=== PATIENT | female | born 2000 | race Caucasian/White ===

== ENCOUNTER 2023-12-06 08:43 | Inpatient (IN) | payer BC ==
[~2023-12-06] VITALS: Ht 170.2 cm; Wt 111.1 kg
[2023-12-06 08:46] VITALS: TEMP 97.6
[2023-12-06 09:14] LABS: BASOPHILS % 0.3 % (0.0-1.0); EOSINOPHILS # (AUTO) 0.1 (0.0-0.4); EOSINOPHILS % 0.6 % (0.0-6.0); HEMATOCRIT 41.7 % (34.2-44.1); HEMOGLOBIN 13.6 g/dL (12.0-16.0); LYMPHOCYTES # (AUTO) 1.2 (1.0-3.2); LYMPHOCYTES % 12.3 % (18.0-39.1); MEAN CORPUSCULAR HEMOGLOBIN 27.5 pg (28-32); MEAN CORPUSCULAR HGB CONC 32.6 g/dL (31-35); MEAN CORPUSCULAR VOLUME 84.4 fL (81-99); MONOCYTES # (AUTO) 0.5 (0.2-0.8); MONOCYTES % 4.8 % (4.4-11.3); NEUTROPHILS # (AUTO) 7.9 (2.1-6.9); NEUTROPHILS % 81.7 % (38.7-80.0); PLATELET COUNT 258 x10e3/uL (140-360); RED BLOOD COUNT 4.94 x10e6/uL (3.6-5.1); RED CELL DISTRIBUTION WIDTH 13.8 % (11.7-14.4); WHITE BLOOD COUNT 9.61 x10e3/uL (4.8-10.8)
[2023-12-06] MEDS: SODIUM CHLORIDE 0.9% 1000ML 1,000 ML IV STA (09:25)
[2023-12-06] MEDS: ONDANSETRON HCL INJ 2MG/ML 2ML 2 MG/ML VIAL IV STA (09:25)
[2023-12-06] MEDS: Morphine 4mg INJECTION 4 MG/ML INJ IV ONE (09:25)
[2023-12-06 09:37] LABS: ALBUMIN 4.4 g/dL (3.5-5.0); ALBUMIN/GLOBULIN RATIO 2.8 (0.8-2.0); ANION GAP 14.7 mmol/L (8-16); BILIRUBIN,TOTAL 3.1 mg/dL (0.2-1.2); CALCIUM 9.4 mg/dL (8.4-10.2); CREATININE, SERUM 0.83 mg/dL (0.57-1.11); POTASSIUM 3.7 mmol/L (3.5-5.1)
[2023-12-06] MEDS ORDERED: SODIUM CHLORIDE FLUSH 10 ML SYR INJ PRN (11:30)
[2023-12-06 12:52] VITALS: PULSE 71; RESP 16
[2023-12-06 13:30] VITALS: BP 123/81; PULSE 82; RESP 20; TEMP 98.6; O2SAT 100
[2023-12-06] MEDS: SODIUM CHLORIDE 0.9% 1000ML 1,000 ML IV SCH (14:11)
[2023-12-06] MEDS: ONDANSETRON HCL INJ 2MG/ML 2ML 2 MG/ML VIAL IV PRN (14:11)
[2023-12-06] MEDS: Morphine 4mg INJECTION 4 MG/ML INJ IV PRN (14:14)
[2023-12-06] MEDS ORDERED: NUVARING VAGIN1 EACH (17:15)
[2023-12-06 19:50] VITALS: BP 125/83; PULSE 67; RESP 20; TEMP 98.5; O2SAT 100
[2023-12-06] MEDS: ACETAMINOPHEN 1000 MG/100 ML IV PRN (20:20)
[2023-12-06 21:30] VITALS: BP 125/83; PULSE 67; RESP 20; TEMP 98.5; O2SAT 100
[2023-12-07] VITALS (8 sets, daily range): BP systolic 102–134; BP diastolic 68–82; PULSE 63–86; RESP 18–20; TEMP 98.2–98.8; O2SAT 99–100
[2023-12-07 05:35] LABS: BASOPHILS % 0.2 % (0.0-1.0); EOSINOPHILS # (AUTO) 0.1 (0.0-0.4); EOSINOPHILS % 0.8 % (0.0-6.0); HEMATOCRIT 36.4 % (34.2-44.1); HEMOGLOBIN 11.6 g/dL (12.0-16.0); LYMPHOCYTES # (AUTO) 1.8 (1.0-3.2); LYMPHOCYTES % 21.7 % (18.0-39.1); MEAN CORPUSCULAR HEMOGLOBIN 27.6 pg (28-32); MEAN CORPUSCULAR HGB CONC 31.9 g/dL (31-35); MEAN CORPUSCULAR VOLUME 86.5 fL (81-99); MONOCYTES # (AUTO) 0.7 (0.2-0.8); MONOCYTES % 7.8 % (4.4-11.3); NEUTROPHILS # (AUTO) 5.8 (2.1-6.9); NEUTROPHILS % 69.3 % (38.7-80.0); PLATELET COUNT 204 x10e3/uL (140-360); RED BLOOD COUNT 4.21 x10e6/uL (3.6-5.1); RED CELL DISTRIBUTION WIDTH 13.7 % (11.7-14.4); WHITE BLOOD COUNT 8.31 x10e3/uL (4.8-10.8)
[2023-12-07 06:04] LABS: ALBUMIN 3.2 g/dL (3.5-5.0); ANION GAP 9.2 mmol/L (8-16); BILIRUBIN,TOTAL 3.3 mg/dL (0.2-1.2); CALCIUM 9.1 mg/dL (8.4-10.2); CREATININE, SERUM 0.78 mg/dL (0.57-1.11); POTASSIUM 4.2 mmol/L (3.5-5.1); TOTAL PROTEIN 6.4 g/dL (6.5-8.1)
[2023-12-07] MEDS: FAMOTIDINE 20 MG TAB PO SCH (07:30)
[2023-12-08] VITALS (7 sets, daily range): BP systolic 113–124; BP diastolic 68–87; PULSE 66–79; RESP 17–20; TEMP 98–98.6; O2SAT 99–100
[2023-12-08 05:45] LABS: BASOPHILS % 0.3 % (0.0-1.0); EOSINOPHILS # (AUTO) 0.1 (0.0-0.4); EOSINOPHILS % 1.1 % (0.0-6.0); HEMATOCRIT 36.5 % (34.2-44.1); HEMOGLOBIN 11.8 g/dL (12.0-16.0); LYMPHOCYTES # (AUTO) 1.5 (1.0-3.2); LYMPHOCYTES % 16.1 % (18.0-39.1); MEAN CORPUSCULAR HEMOGLOBIN 27.6 pg (28-32); MEAN CORPUSCULAR HGB CONC 32.3 g/dL (31-35); MEAN CORPUSCULAR VOLUME 85.3 fL (81-99); MONOCYTES # (AUTO) 0.9 (0.2-0.8); MONOCYTES % 10.1 % (4.4-11.3); NEUTROPHILS # (AUTO) 6.6 (2.1-6.9); NEUTROPHILS % 72.1 % (38.7-80.0); PLATELET COUNT 204 x10e3/uL (140-360); RED BLOOD COUNT 4.28 x10e6/uL (3.6-5.1); RED CELL DISTRIBUTION WIDTH 13.8 % (11.7-14.4); WHITE BLOOD COUNT 9.14 x10e3/uL (4.8-10.8)
[2023-12-08 06:52] LABS: ALBUMIN 3.2 g/dL (3.5-5.0); ANION GAP 12.4 mmol/L (8-16); BILIRUBIN,TOTAL 4.6 mg/dL (0.2-1.2); CALCIUM 8.4 mg/dL (8.4-10.2); CREATININE, SERUM 0.81 mg/dL (0.57-1.11); MAGNESIUM 1.8 MG/DL (1.3-2.1); POTASSIUM 4.4 mmol/L (3.5-5.1); TOTAL PROTEIN 6.5 g/dL (6.5-8.1)
[2023-12-08] MEDS ORDERED: KETOROLAC TROMETHAMINE 30 MG/ML VIAL ONE (11:07)
[2023-12-08] MEDS ORDERED: ONDANSETRON HCL INJ 2MG/ML 2ML 2 MG/ML VIAL ONE (11:07)
[2023-12-08] MEDS ORDERED: SEVOFLURANE INHAL SOLN 250 ML PEN BTL ONE (11:07)
[2023-12-08] MEDS ORDERED: NEOSTIGMINE 1 MG/ML 10ML VIAL ONE (11:07)
[2023-12-08] MEDS ORDERED: LIDOCAINE HCL 2% LOCAL INJ 5 ML SDV VIAL INJ ONE (11:07)
[2023-12-08] MEDS ORDERED: PROPOFOL IV EMULSION 10 MG/ML 20 ML VIAL ONE (11:07)
[2023-12-08] MEDS ORDERED: ROCURONIUM BROMIDE 10 MG/ML 5ML VIAL IV ONE (11:07)
[2023-12-08] MEDS ORDERED: METOCLOPRAMIDE HCL 10 MG/2ML VIAL ONE (11:07)
[2023-12-08] MEDS ORDERED: GLYCOPYRROLATE INJ 0.2 MG/ML VIAL ONE (11:07)
[2023-12-08] MEDS ORDERED: FENTANYL CITRATE/PF 100MCG/2 ML INJ ONE (11:30)
[2023-12-08] MEDS ORDERED: MIDAZOLAM HCL 2 MG/2 ML VIAL ONE (11:30)
[2023-12-08] MEDS ORDERED: BUPIVACAINE 0.25% 30ML SDV ONE (12:27)
[2023-12-08] MEDS ORDERED: HYDROMORPHONE 1MG/1ML INJ ONE (12:28)
[2023-12-08] MEDS ORDERED: ACETAMINOPHEN 1000 MG/100 ML 100 ML IV ONE (12:29)
[2023-12-08] MEDS ORDERED: FAMOTIDINE 20 MG/2 ML VIAL IV ONE (12:29)
[2023-12-08] MEDS ORDERED: IOPAMIDOL 610MG/1ML 300 MG/ML VIAL IV ONE (13:14)
[2023-12-08] MEDS: MEPERIDINE HCL INJ 25 MG/ML VIAL ONE (14:24)
[2023-12-08] MEDS: SODIUM CHLORIDE 0.9% 250ML 250 ML ONE (16:27)
[2023-12-08] MEDS: PIPERACILLIN/TAZOBACTAM 3.375 GM VIAL ONE (16:28)
[2023-12-08] MEDS: ONDANSETRON HCL INJ 2MG/ML 2ML 2 MG/ML VIAL IV PRN (16:28)
[2023-12-08 17:30] LABS: FERRITIN 121.5 ng/mL (4.63-204.00)
[2023-12-09] VITALS: BP 124/74; PULSE 80; RESP 18; TEMP 98.9; O2SAT 100
[2023-12-09] MEDS: CYANOCOBALAMIN INJ 1,000 MCG/ML VIAL IM ONE (00:17)
[2023-12-09 04:00] VITALS: BP 116/69; PULSE 72; RESP 17; TEMP 98.6; O2SAT 100
[2023-12-09 05:51] LABS: BASOPHILS % 0.1 % (0.0-1.0); EOSINOPHILS % 0.3 % (0.0-6.0); HEMATOCRIT 34.8 % (34.2-44.1); HEMOGLOBIN 11.1 g/dL (12.0-16.0); LYMPHOCYTES # (AUTO) 1.9 (1.0-3.2); LYMPHOCYTES % 18.2 % (18.0-39.1); MEAN CORPUSCULAR HEMOGLOBIN 27.5 pg (28-32); MEAN CORPUSCULAR HGB CONC 31.9 g/dL (31-35); MEAN CORPUSCULAR VOLUME 86.4 fL (81-99); MONOCYTES # (AUTO) 0.7 (0.2-0.8); NEUTROPHILS # (AUTO) 7.5 (2.1-6.9); NEUTROPHILS % 73.8 % (38.7-80.0); PLATELET COUNT 224 x10e3/uL (140-360); RED BLOOD COUNT 4.03 x10e6/uL (3.6-5.1); RED CELL DISTRIBUTION WIDTH 13.7 % (11.7-14.4); WHITE BLOOD COUNT 10.22 x10e3/uL (4.8-10.8)
[2023-12-09 06:10] LABS: ALANINE AMINOTRANSFERASE 148 IU/L (0-55); ALBUMIN 3.2 g/dL (3.5-5.0); ALKALINE PHOSPHATASE 108 IU/L (40-150); ANION GAP 11.9 mmol/L (8-16); BILIRUBIN,TOTAL 1.3 mg/dL (0.2-1.2); BLOOD UREA NITROGEN < 5 mg/dL (7-26); CALCIUM 8.5 mg/dL (8.4-10.2); CARBON DIOXIDE 21 mmol/L (22-29); CHLORIDE 109 mmol/L (98-107); CREATININE, SERUM 0.74 mg/dL (0.57-1.11); EST GLOMERULAR FILTRATION RATE 116 ML/MIN (>=60); GLUCOSE 122 mg/dL (74-118); POTASSIUM 3.9 mmol/L (3.5-5.1); SODIUM 138 mmol/L (136-145); TOTAL PROTEIN 6.4 g/dL (6.5-8.1)
[2023-12-09 06:13] LABS: BUN/CREATININE RATIO 7 (6-25)
[2023-12-09 09:00] VITALS: BP 125/76; PULSE 70; RESP 19; TEMP 98.1; O2SAT 100
[2023-12-09] MEDS ORDERED: IRON SUCROSE 100 MG in SODIUM CHLORIDE 0.9% 100 ML IV SCH (09:00)
[2023-12-09] MEDS: CYANOCOBALAMIN INJ 1,000 MCG/ML VIAL IM SCH (09:00)
[2023-12-09 09:09] VITALS: BP 125/76; PULSE 70; RESP 20; TEMP 98.1; O2SAT 100
[2023-12-09] MEDS: SODIUM FERRIC GLUCONATE COMPLX 125 MG in SODIUM CHLORIDE 0.9% 100 ML IV SCH (10:28)
[2023-12-09] MEDS: HYDROCODONE/APAP 7.5MG-325MG 1 EA TAB PO PRN (11:38)
[2023-12-09 12:06] VITALS: BP 123/79; PULSE 78; RESP 20; TEMP 98.3; O2SAT 99
[2023-12-09] MEDS ORDERED: LEVOFLOXACIN750 MG PO (12:10)
[2023-12-09] MEDS ORDERED: ONDANSETRON HCL 4 MG ORAL DISINTEGRATING TAB PO PRN (15:15)
[2023-12-11 06:38] LABS: HEPATITIS B CORE AB TOTAL Negative; HEPATITIS B SURFACE AG (P) Negative; HEPATITIS C ANTIBODY Non Reactive
== END 2023-12-09 15:30 | disposition home or self-care (01) | DRG 419 ==
LOC: ER 08:51 → ERHOLD 11:34 → MED/SURG3 13:30
PROVIDERS: ADMIT Internal Medicine; ATTEND Internal Medicine
PROC: BF101ZZ Fluoroscopy of Bile Ducts using Low Osmolar Contrast (ICD-10-PCS; 2023-12-08)
PROC: 0FT44ZZ Resection of Gallbladder, Percutaneous Endoscopic Approach (ICD-10-PCS; principal; 2023-12-08 12:39)
DX: K80.20 Calculus of gallbladder without cholecystitis without obstruction (principal); Z11.52 Encounter for screening for COVID-19; Z72.0 Tobacco use; F10.90 Alcohol use, unspecified, uncomplicated; E66.9 Obesity, unspecified; D50.9 Iron deficiency anemia, unspecified; K21.9 Gastro-esophageal reflux disease without esophagitis; E80.6 Other disorders of bilirubin metabolism; Z68.38 Body mass index [BMI] 38.0-38.9, adult
CPT/HCPCS: 36415; 74181; 74300; 76705; 80053; 81025; 82607; 82728; 83540; 83690; 83735; 84466; 85025; 85045; 85379; 86704; 88304; 99284; C1766; J1170; J1885; J2001; J2175; J2250; J2270; J2405; J2543; J2710; J2765; J2916; J3420; J7030; J7050; U0002